=== PATIENT | female | born 1955 ===

== ENCOUNTER 2017-02-19 08:10 | Emergency (ER) | payer OTHER ==
[2017-02-19 08:25] VITALS: BMI 32.8
[2017-02-19 08:29] VITALS: BP 183/89; PULSE 81; RESP 18; TEMP 98.2; O2SAT 98
--- NOTE | 2017-02-19 08:48 | C.PDOC ---
History Of Present Illness 61 y/o female, whose PMHx includes Asthma, Diabetes, and HTN, presents to the ED for evaluation s/p trip and fall prior to arrival. Patient states she missed a step on the sidewalk. She reports trauma to the right shoulder and bilateral knees, face and left hand. Patient notes that she is able to ambulate without difficulty. States pain is worst to the right shoulder with limited range of movement. Patient denies loss of consciousness, nausea, vomiting, or other complaints. [employer]. PS MISSED STEP ON SIDEWALK, +TRAUMA R SHOULDER B/L KNEES, FACE AND L HAND. NO LOC, NV. +AMBUL WO DIFF. WORST PAIN @ R SHOULDER. LIMITED MOVEMENT. EXAM MILD DIST NONTOXIC HEENT +CONTUSION L LAT ELBOW W LOCAL TEND, NO SWELL; EOMI; NO EPISTAXIS ABD NEG EXT R SHOULDER: LIMITED ROM DUE TO PAIN; NO GROSS DEFORM; GEN TENDERNESS. B/L KNEES: AROM W/O DIFF, NONTEND, NO SWELL. L HAND: CHRONIC SUBCUT CYST OVER 3/4 METACARPAL, NONTEND, FLUCTUANT; NO DEFORM, NONTEND AROM WO DIFF SKIN +ABRASION B/L KNEES; ABRASION L HAND. NO ACTIVE BLEED NEURO INTACT - HPI Time Seen by Provider: 02/19/17 08:37 Chief Complaint (Nursing): Lower Extremity Problem/Injury History Per: Patient History/Exam Limitations: no limitations Onset/Duration Of Symptoms: Mins, Sudden Onset, Persistent Injury Occurred (Timing): Just Before Arrival Recent travel outside of the [place]: No Past Medical History Reviewed: Historical Data, Nursing Documentation, Vital Signs Vital Signs: Last Vital Signs Temp 98.2 F 02/19/17 08:29 Pulse 81 02/19/17 08:29 Resp 18 02/19/17 08:29 BP 183/89 H 02/19/17 08:29 Pulse Ox 98 02/19/17 09:31 - Medical History PMH: Asthma, Diabetes, HTN Surgical History: Cholecystectomy (1994) - [facility] Procedures BREAST DX PROCEDURE NEC (12/21/13) PERCUTAN NEEDLE BIOPSY OF BREAST (12/21/13) X-RAY NEC AND NOS (12/21/13) Family History: States: Unknown Family Hx - Social History Hx Tobacco Use: No Hx Alcohol Use: No Hx Substance Use: No Review Of Systems Except As Marked, All Systems Reviewed And Found Negative. Gastrointestinal: Negative for: Nausea, Vomiting Musculoskeletal: Positive for: Other (pain/trauma to right shoulder, b/l knees, face, and left hand) Neurological: Negative for: Other (LOC) Physical Exam - Physical Exam Appears: Non-toxic, Other (in mild distress) Skin: Warm, Dry, Other (+ABRASION B/L KNEES; ABRASION L HAND. NO ACTIVE BLEED) Head: Atraumatic, Normacephalic Eye(s): bilateral: Normal Inspection, PERRL, EOMI Nose: Normal, No Epistaxis Neck: Normal ROM, No Midline Cervical Tenderness, Supple Chest: Symmetrical, No Tenderness Cardiovascular: Rhythm Regular Respiratory: Normal Breath Sounds, No Rales, No Rhonchi, No Wheezing Gastrointestinal/Abdominal: Normal Exam, Soft, No Tenderness Back: Normal Inspection, No Vertebral Tenderness Extremity: Other (EXT R SHOULDER: LIMITED ROM DUE TO PAIN; NO GROSS DEFORM; GEN TENDERNESS. B/L KNEES: AROM W/O DIFF, NONTEND, NO SWELL. L HAND: CHRONIC SUBCUT CYST OVER 3/4 METACARPAL, NONTEND, FLUCTUANT; NO DEFORM, NONTEND AROM WO DIFF. + CONTUSION L LAT ELBOW W LOCAL TEND, NO SWELL) Neurological/Psych: Oriented x3, Normal Speech, Normal Cognition, Normal Cranial Nerves (II-XII intact), Normal Sensation Gait: Steady ED Course And Treatment O2 Sat by Pulse Oximetry: 98 (ra) Pulse Ox Interpretation: Normal - Other Rad X-Ray, Right Shoulder X-Ray: Interpreted by Me Interpretation: + fracture to right humeral head; no dislocation X-Ray, Right Humerus X-Ray: Interpreted by Me Interpretation: normal, no fractures or dislocations X-Ray, Left Hand X-Ray: Interpreted by Me Interpretation: normal, no fractures or dislocations Progress - Data Reviewed Data Reviewed: Lab, Old records Medical Decision Making Medical Decision Making: Plan: * X-Ray, Left Hand * X-Ray, Right Shoulder * X-Ray, Right Humerus * Naproxen PO, Percocet PO * Tetanus Booster Disposition Counseled Patient/Family Regarding: Studies Performed, Diagnosis, Need For Followup, Rx Given - Disposition Referrals: Caryl Monk MD [Staff Provider] - [facility] [Outside] [facility] [Other] Disposition: HOME/ ROUTINE Disposition Time: 09:28 Condition: IMPROVED Prescriptions: oxyCODONE/Acetaminophen [Percocet 5/325 mg Tab] 1 tab PO QID PRN #14 tab PRN Reason: Pain Instructions: Arm Fracture in Adults (ED) Forms: Work Excuse - Clinical Impression Clinical Impression: Shoulder fracture - Scribe Statement The provider has reviewed the documentation as recorded by the Scribe (Vicky Ferrell) Provider Attestation: All medical record entries made by the Scribe were at my direction and personally dictated by me. I have reviewed the chart and agree that the record accurately reflects my personal performance of the history, physical exam, medical decision making, and the department course for this patient. I have also personally directed, reviewed, and agree with the discharge instructions and disposition. Orthopedic Care Application Of:: Shoulder Immobilizer (RIGHT)
[2017-02-19] MEDS ORDERED: Naproxen 550 mg Tab PO STA (08:49)
[2017-02-19] MEDS ORDERED: Tetanus/Diphtheria Toxoids 0.5 ml Syringe IM ONE ×2 (08:50→09:00)
[2017-02-19] MEDS ORDERED: Naproxen 550 mg Tab PO ONE (09:00)
[2017-02-19] MEDS ORDERED: Oxycodone/Acetaminophen 5/325 mg Tab PO STA (09:31)
[2017-02-19] MEDS ORDERED: Oxycodone/Acetaminophen 5/325 mg Tab ONE (09:42)
--- NOTE | 2017-02-19 10:15 | RAD ---
PROCEDURE: Left Hand Radiographs. HISTORY: TRAUMA COMPARISON: None. FINDINGS: BONES: Normal. No fracture. JOINTS: Normal. No osteoarthritic changes. SOFT TISSUES: Normal. OTHER FINDINGS: None. IMPRESSION: Normal left hand radiographs.
--- NOTE | 2017-02-19 10:18 | RAD ---
PROCEDURE: Right humerus HISTORY: TRAUMA COMPARISON: TECHNIQUE: Two views FINDINGS: There is a comminuted fracture of the humeral head. The remainder the humerus is intact IMPRESSION: Comminuted fracture humeral head
--- NOTE | 2017-02-19 10:19 | RAD ---
PROCEDURE: Radiographs of the Right Shoulder HISTORY: TRAUMA COMPARISON: No prior. FINDINGS: BONES: There is a comminuted fracture of the humeral head. Bony fragments are seen lateral to the humeral head. The articular surface is intact JOINTS: Normal. Glenohumeral and acromioclavicular joints preserved. No osteoarthritis. SOFT TISSUES: Normal. OTHER FINDINGS: None. IMPRESSION: There is a comminuted fracture of the humeral head. Bony fragments are seen lateral to the humeral head. The articular surface is intact
== END 2017-02-19 09:46 | disposition home or self-care (01) ==
LOC: C.ER 08:10
DX: S42.291A Other displaced fracture of upper end of right humerus, initial encounter for closed fracture (principal); S80.212A Abrasion, left knee, initial encounter; S80.211A Abrasion, right knee, initial encounter; S60.512A Abrasion of left hand, initial encounter; W01.0XXA Fall on same level from slipping, tripping and stumbling without subsequent striking against object, initial encounter; Y92.480 Sidewalk as the place of occurrence of the external cause

== ENCOUNTER 2017-02-27 11:22 | Inpatient (IN) | payer OTHER ==
[2017-02-26 08:03] VITALS: BMI 34.3
[2017-02-27] MEDS ORDERED: Bacitracin 50,000 UNIT in Sodium Chloride 0.9% Irrig 1,000 ML IR SCH (13:00)
[2017-02-27] MEDS ORDERED: ceFAZolin IV 1 gm in Dextrose 100 ML IVPB ONE (13:51)
[2017-02-27] MEDS ORDERED: Midazolam 2 MG/2 ML VIAL ONE (13:51)
[2017-02-27] MEDS ORDERED: Propofol 10 mg/ml Inj (20 ML) ONE (13:51)
[2017-02-27] MEDS ORDERED: Bupivacaine HCl 0.5% PF (10 ml) Inj ONE (13:52)
[2017-02-27] MEDS ORDERED: Lidocaine 1% Inj (20ml) ONE (13:52)
[2017-02-27] MEDS ORDERED: Morphine 4 MG/ML VIAL ONE (15:13)
[2017-02-27] MEDS ORDERED: ceFAZolin IV 1 gm in Dextrose 50 ML IVPB ONE ×2 (18:01→22:06)
[2017-02-27] MEDS ORDERED: Lactated Ringer's 1,000 ML IV ONE (20:10)
[2017-02-27] MEDS ORDERED: HYDROmorphone 0.5 mg/0.5 ml ISec IVP PRN (23:16)
[2017-02-28] MEDS: Sodium Chloride 0.45% 1,000 ML IV SCH ×3 (01:43→21:29)
[2017-02-28] MEDS: ceFAZolin IV 2 gm in Dextrose 50 ML IVPB SCH ×2 (01:44→11:00)
[2017-02-28 05:59] LABS: BASO # 0.1 K/uL (0.0-0.2); BASO % 0.5 % (0.0-2.0); EOS % 0.2 % (0.0-4.0); HEMATOCRIT 31.2 % (34.0-47.0); LYMPH # 1.9 K/uL (1.0-4.3); LYMPH % 12.7 % (20.0-40.0); MEAN CELL VOLUME 78.4 fL (81.0-99.0); MEAN CORPUSCULAR HEMOGLOBIN 24.5 pg (27.0-31.0); MEAN CORPUSCULAR HGB CONC 31.2 g/dL (33.0-37.0); MEAN PLATELET VOLUME 8.4 fL (7.2-11.7); MONO # 0.9 K/uL (0.0-0.8); RED CELL DISTRIBUTION WIDTH 13.7 % (11.5-14.5); WHITE BLOOD COUNT 15.2 K/uL (4.8-10.8)
[2017-02-28 06:16] LABS: CHLORIDE 92 mmol/L (98-107); POTASSIUM 3.6 mmol/L (3.6-5.2); SODIUM 138 mmol/L (132-148)
[2017-02-28 06:19] LABS: CARBON DIOXIDE 30 mmol/L (22-30); GFR AFRICAN-AMERICAN > 60
[2017-02-28 06:20] LABS: BLOOD UREA NITROGEN 13 mg/dL (7-17); CALCIUM 8.1 mg/dl (8.6-10.4); GLUCOSE,RANDOM 319 mg/dL (65-105)
--- NOTE | 2017-02-28 08:28 | OP ---
PROCEDURE DATE: 02/27/2017 PREOPERATIVE DIAGNOSIS: Right proximal humerus fracture. POSTOPERATIVE DIAGNOSIS: Right proximal humerus fracture and axillary nerve injury. PROCEDURE: Open reduction, internal fixation of right proximal humerus fracture and repair of axilla ry nerve injury, this portion of the repair the nerve will be dictated by Dr. Duffy. COMPLICATIONS: None. ESTIMATED BLOOD LOSS: 250 mL. IMPLANT: An Arthrex proximal humeral locking plate. INDICATIONS FOR PROCEDURE: This is a 61-year-old female who approximately 8 days ago sustained a fal l injuring her right shoulder. Clinical and radiographic examination was consistent with a comminute d proximal humerus fracture. Recommendations were for open reduction and internal fixation of the fr acture once the patient was medically optimized. The risks, benefits, and alternatives of procedure were discussed with the patient and informed consent was obtained. OPERATIVE PROCEDURE: After surgical site was signed and verified in preoperative holding area, the p atient was taken to the operating room and placed supine on the operating table. After administratio n of general anesthesia, patient received 2 grams of Ancef IV. The patient was positioned in a beach chair position. Care was taken to make sure all bony prominences and nerves were well padded and pr otected. Venodyne boots were placed on bilateral lower extremities and the right upper extremity was prepped and draped in the usual sterile fashion. The bony landmarks were identified about the right shoulder and a lateral approach was taken to the fracture site. First, the lateral edge of the acro mion was identified and approximately 8 cm longitudinal incision was made laterally extending down ov er the deltoid. Soft tissues of the anterior and posterior flaps were raised exposing the deltoid fa scia. At this point, using a ruler, the approximate location of the axillary nerve was identified an d was marked at 5 cm distal to the lateral edge of the acromion. At this point, starting proximally soft tissues, the fascia was incised and the deltoid fibers were split down to the capsule. The marshall ent was noted to have extensive comminution at the greater tuberosity. At this point, dissection was extended distally down to the 5 cm diego. At this point, care was taken to try to palpate the axilla ry nerve. However, the axillary nerve was not visualized and was not palpable. Several bony fragmen ts were identified and at this point, there was concern that there was damage to the anterior branche s of the axillary nerve and Dr. Duffy who is a microvascular surgeon was called for intraoperative co nsultation. When Dr. Duffy scrubbed into the procedure, she agreed that the nerve to the anterior po rtion of the deltoid appeared to have been damaged. The edges of the nerve appeared to be almost cru shed essentially at the level of the fracture site and the comminution. At this point, she tagged th e nerve and I proceeded with the open reduction, internal fixation of the fracture. Three sutures we re placed in the greater tuberosity fragment and using the C-arm image intensifier an open reduction was performed provisionally holding our reduction using K wires. Next, a 3-hole Arthrex plate was pl aced on the lateral aspect of the proximal humerus. Position of the plate was checked using the imag e intensifier on both the AP and lateral planes. The plate was then first fixed with a cortical scre w in the distal shaft fragment and locking screws were then placed in the proximal greater tuberosity and humeral head fragment. Position of the screws was checked using the image intensifier on both t he AP and lateral planes. Satisfied, the fracture was then further fixed distally with 2 additional locking screws. At this point, all the K-wires were removed and our reduction was checked. Using th e previously passed sutures in the greater tuberosity fragment, #2 FiberWire sutures were passed thro ugh holes in the proximal aspect of the plate and tied down firmly securing the greater tuberosity fr agments back down to the plate. The arm was taken through range of motion and was noted to be stable with good reduction. At this point, Dr. Duffy proceeded with the nerve repair and once the nerve wa s repaired, the wound was copiously irrigated and closed in a layered fashion using 0 Vicryl, 2-0 Ilia ryl suture and 3-0 nylon for the skin. Sterile dressing was applied and an abduction pillow sling wa s placed. The patient was awakened from the procedure and taken to recovery room in stable condition . Amauri Murry MD cc: [id number] TT: 02/28/2017 08:27:26 aquilino
[2017-02-28] MEDS ORDERED: (Novolin R) Insulin Human Regular 100 units/ml vial SC ONE (09:23)
[2017-02-28] MEDS: hydroCHLOROthiazide-Triamterene 25 mg-37.5 mg Cap UD PO SCH (09:53)
--- NOTE | 2017-02-28 12:22 | CP.PCM.PN ---
Subjective - Date & Time of Evaluation Date of Evaluation: 02/28/17 Time of Evaluation: 12:20 - Subjective Subjective: Pt awake, alert. C/o R shoulder pain and bump on back of head. Pt had a CT scan of head this morning. Afebrile RUE: grossly NVI distally good cap refill in all fingers palpable distal pulses dressing clean and intact sling in place Hg 9.7 WBC 15.2 POD#[address] scan pain control possible d/c tomorrow Objective - Vital Signs/Intake and Output Vital Signs (last 24 hours): Temp Pulse Resp BP Pulse Ox 98.5 F 86 18 138/69 97 02/28/17 12:00 02/28/17 12:00 02/28/17 12:00 02/28/17 12:00 02/28/17 12:00 Intake and Output: 02/28/17 02/28/17 06:59 18:59 Intake Total 1800 Output Total 400 Balance 1400 - Medications Medications: Current Medications Amlodipine Besylate (Norvasc) 5 mg PO DAILY [facility] Last Admin: 02/28/17 09:53 Dose: 5 mg Bisoprolol Fumarate (Zebeta) 10 mg PO DAILY [facility] Last Admin: 02/28/17 09:53 Dose: 10 mg Enalapril Maleate (Vasotec) 10 mg PO DAILY [facility] Last Admin: 02/28/17 10:03 Dose: Not Given Glimepiride (Amaryl) 4 mg PO BID [facility] Last Admin: 02/28/17 09:53 Dose: 4 mg Hydromorphone HCl (Dilaudid) 1 mg IVP Q4H PRN PRN Reason: post op Last Admin: 02/28/17 08:22 Dose: 1 mg Sodium Chloride (Sodium Chloride 0.45%) 1,000 mls @ 100 mls/hr IV .Q10H [facility] Last Admin: 02/28/17 01:43 Dose: 100 mls/hr Insulin Human Regular (Novolin R) 0 unit SC ACHS [facility] PRN Reason: Protocol Triamterene/HCTZ (Dyazide 25 Mg-37.5 Mg) 1 cap PO DAILY [facility] Last Admin: 02/28/17 09:53 Dose: 1 cap - Labs Labs: 02/28/17 05:53 02/28/17 05:53
[2017-02-28] MEDS: (Novolin R) Insulin Human Regular 100 units/ml vial SC SCH ×3 (12:34→21:27)
--- NOTE | 2017-02-28 12:55 | CT ---
PROCEDURE: CT HEAD WITHOUT CONTRAST. HISTORY: s/p fall.c/o pain / bump on occipital area COMPARISON: 01/06/2017 TECHNIQUE: Axial computed tomography images were obtained through the head/brain without intravenous contrast. Radiation dose: Total exam DLP = 945 mGy-cm. This CT exam was performed using one or more of the following dose reduction techniques: Automated exposure control, adjustment of the mA and/or kV according to patient size, and/or use of iterative reconstruction technique. FINDINGS: HEMORRHAGE: No intracranial hemorrhage. BRAIN: No mass effect or edema. Scattered focal lucencies in the subcortical and periventricular white matter suggestive for chronic microvascular ischemic change. Small hypodensity in the left basal ganglia which may represent a small lacunar infarct versus prominent perivascular space. VENTRICLES: Unremarkable. No hydrocephalus. CALVARIUM: Unremarkable. PARANASAL SINUSES: Unremarkable as visualized. No significant inflammatory changes. MASTOID AIR CELLS: Unremarkable as visualized. No inflammatory changes. OTHER FINDINGS: Soft tissue swelling seen overlying the right parieto-occipital cranium. Partially calcified soft tissue nodule seen overlying the right frontal cranium. IMPRESSION: Soft tissue swelling overlying the right parieto-occipital cranium. Small hypodensity in the left basal ganglia which may represent a small lacunar infarct versus prominent perivascular space. Mild chronic microvascular ischemic changes. If focal neurologic deficit persists, consider MRI.
--- NOTE | 2017-02-28 13:50 | CP.PCM.PCO ---
Physician Communication Note - Physician Communication Note Physician Communication Note: Patient status post ORIF right humeral fracture Assessment & Plan - Assessment and Plan (Free Text) Assessment: She is doing well, head CT performed. CT scan shows is unremarkable. RUE: Flexion and extension of elbow and fingers intact. There is good cap refill in all fingers with palpable radial pulse. Dressing is clean, dry and intact. Accessment and Plan: Humeral fracture fixation and superior axillary nerve branch repair Patient has no restrictions from the nerve repair standpoint and will follow humeral fracture protocol as per Dr. Branham's direction. She will follow up with me in the office in a few weeks. Anticipate the nerve recovery to take a few months before any significant reinnervation will be noted.
[2017-02-28 16:05] VITALS: RESP 20
[2017-03-01] MEDS: Sodium Chloride 0.45% 1,000 ML IV SCH ×2 (00:05→10:15)
[2017-03-01] MEDS: (Novolin R) Insulin Human Regular 100 units/ml vial SC SCH ×3 (07:51→17:18)
[2017-03-01 08:18] LABS: HEMATOCRIT 27.1 % (34.0-47.0); MEAN CORPUSCULAR HEMOGLOBIN 24.7 pg (27.0-31.0); MEAN CORPUSCULAR HGB CONC 31.7 g/dL (33.0-37.0); MEAN PLATELET VOLUME 8.3 fL (7.2-11.7); RED CELL DISTRIBUTION WIDTH 13.8 % (11.5-14.5); WHITE BLOOD COUNT 12.8 K/uL (4.8-10.8)
[2017-03-01 08:32] LABS: CHLORIDE 91 mmol/L (98-107); POTASSIUM 3.5 mmol/L (3.6-5.2); SODIUM 132 mmol/L (132-148)
[2017-03-01 08:34] LABS: GFR AFRICAN-AMERICAN > 60
[2017-03-01 08:35] LABS: BLOOD UREA NITROGEN 8 mg/dL (7-17); CARBON DIOXIDE 28 mmol/L (22-30)
[2017-03-01 08:36] LABS: CALCIUM 7.9 mg/dl (8.6-10.4); GLUCOSE,RANDOM 336 mg/dL (65-105)
[2017-03-01] MEDS: hydroCHLOROthiazide-Triamterene 25 mg-37.5 mg Cap UD PO SCH (09:56)
--- NOTE | 2017-03-01 10:33 | CP.PCM.PN ---
Subjective - Date & Time of Evaluation Date of Evaluation: 03/01/17 Time of Evaluation: 10:32 - Subjective Subjective: Pt awake, alert. Sitting up in chair. Less pain today. Afebrile RUE: dressing clean NVI distally palpable distal pulse Hg 8.6 POD#2 Stable for d/c home today if of with internal med service pt to f/u in office Objective - Vital Signs/Intake and Output Vital Signs (last 24 hours): Temp Pulse Resp BP Pulse Ox 97.7 F 86 20 121/72 96 03/01/17 09:53 03/01/17 09:53 03/01/17 09:53 03/01/17 09:53 03/01/17 09:53 Intake and Output: 03/01/17 03/01/17 06:59 18:59 Intake Total 900 Balance 900 - Medications Medications: Current Medications Amlodipine Besylate (Norvasc) 5 mg PO DAILY [facility] Last Admin: 03/01/17 09:55 Dose: 5 mg Bisoprolol Fumarate (Zebeta) 10 mg PO DAILY [facility] Last Admin: 03/01/17 09:55 Dose: 10 mg Docusate Sodium (Colace) 100 mg PO TID [facility] Last Admin: 03/01/17 09:55 Dose: 100 mg Enalapril Maleate (Vasotec) 10 mg PO DAILY [facility] Last Admin: 02/28/17 10:03 Dose: Not Given Glimepiride (Amaryl) 4 mg PO BID [facility] Last Admin: 03/01/17 09:55 Dose: 4 mg Hydromorphone HCl (Dilaudid) 1 mg IVP Q4H PRN PRN Reason: post op Last Admin: 03/01/17 04:59 Dose: 1 mg Sodium Chloride (Sodium Chloride 0.45%) 1,000 mls @ 100 mls/hr IV .Q10H [facility] Last Admin: 03/01/17 00:05 Dose: 100 mls/hr Insulin Human Regular (Novolin R) 0 unit SC ACHS [facility] PRN Reason: Protocol Last Admin: 03/01/17 07:51 Dose: 3 unit Triamterene/HCTZ (Dyazide 25 Mg-37.5 Mg) 1 cap PO DAILY [facility] Last Admin: 03/01/17 09:56 Dose: 1 cap - Labs Labs: 03/01/17 08:10 03/01/17 08:10
[2017-03-01 16:25] VITALS: BP 124/73; PULSE 80; TEMP 98.9; O2SAT 98
--- NOTE | 2017-03-02 10:02 | CON ---
DATE: 02/28/2017 HISTORY OF PRESENT ILLNESS: This is a 61-year-old female who is known to me with multiple medical problems, underwent right shoulder surgery . She is postoperative day #1 and medical consultation is called for medical followup while the patient is in the hospital. The patient has multiple medical problems and she is on multiple medications. The patient is alert, awake, oriented x 3 at the time of this examination with no respiratory distress and denied any chest pain or shortness of breath. REVIEW OF SYSTEMS: Other review of systems is negative. ALLERGIES: THE PATIENT HAS ALLERGY TO SESAME OIL AND SHELLFISH. SOCIAL HISTORY: No history of smoking, ETOH or substance abuse. FAMILY HISTORY: Noncontributory. HOME MEDICATIONS: The patient is on bisoprolol 5 mg daily, Lotrel 5/20 once a day, glimepiride 4 mg twice a day, Xarelto 20 daily, Janumet twice a day , Dyazide 37.5/25 once a day. PAST MEDICAL HISTORY: Paroxysmal atrial fibrillation, hypertension, type 2 diabetes mellitus. PHYSICAL EXAMINATION: GENERAL: The patient is in bed, comfortable at the time of this examination, in no cardiopulmonary distress. VITAL SIGNS: Blood pressure is 148/77, temperature 99, respiratory rate 20, and pulse is 84. HEENT: Pupils equal, reactive to light. Normal-appearing mucosa of the conjunctivae, oropharyngeal and nasal membrane mucosa. The patient also has occipitoparietal soft tissue swelling as the patient was waiting in the operating room for an extended period of surgery yesterday NECK: Supple, no JVD, no carotid bruit, no lymph node, no thyromegaly. CHEST AND LUNGS: Bilateral symmetrical expansion, good air exchange, no rales, no rhonchi. CARDIOVASCULAR: PMI not localized. S1, S2. No additional sounds. ABDOMEN: Normoactive bowel sounds, no tenderness, no organomegaly, no masses. EXTREMITIES: No cyanosis, no clubbing, no edema. CENTRAL NERVOUS SYSTEM: Alert, awake, oriented x 3. No neurological deficits could be appreciated. ASSESSMENT: 1. Postoperative day #1, status post open reduction internal fixation of right shoulder fracture. 2. Type 2 diabetes mellitus. 3. Hypertension. 4. Paroxysmal atrial fibrillation. PLAN: We will resume the patient's home medications, Accu-Cheks with insulin coverage and we will do a CAT scan; a CAT of the head was done and we will follow the recommendations of neurosurgery. Gillian Perry MD cc: [id number] TT: 02/28/2017 19:31:10 Confirmation # [id number] Dictation # [id number] [email or web address]
--- NOTE | 2017-03-02 10:27 | CON ---
DATE: 03/01/2017 This is a 61-year-old lady that apparently fell, suffered a severe injury involving her right shoulde r. Apparently, she underwent rather extensive shoulder surgery a couple of days ago. One report was that it lasted about 8 hours. , the big issue is in the decubitus position the pain is for mary e time, mostly involving on her right head. Postoperatively, it was noted that she had swelling involving the right side of her parietal region. A CT scan was done of the brain which simply documented a soft tissue swelling in the scalp. On interviewing the patient today, she reports no symptoms at all other than the localized discomfort in the area. Denies any true headache, nausea, vomiting, motor or sensory symptoms, epileptiform ac tivity, etc. Her past medical history, medications, allergies and social history reviewed in the EMR. PHYSICAL EXAMINATION: She is again on mental status, motor and sensory intact. She has a little bit of swelling, which is in fact painful in the right parietooccipital region. There is no evidence of erythema or drainage. The CT shows again simply an area of soft tissue scalp swelling in the right parietooccipital area. There is no breach of the skull and there is no intracranial pathology at all. IMPRESSION AND PLAN: I would agree that this most likely represents some postoperative fluid from pe rhaps being in one position for a long time. In all likelihood it will resolve over the next several weeks. I reported this information to the patient. If there are any other issues or problems, feel free to call me back. Daniel Caruso MD cc: [id number] TT: 03/01/2017 19:02:23 Confirmation # [id number] Dictation # [id number] mn
--- NOTE | 2017-03-02 16:13 | OP ---
PROCEDURE DATE: 02/27/2017 SURGEON: Dr. Sabina Duffy. 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 ANESTHESIA: General endotracheal anesthesia. PROCEDURE: Repair of superior branch axillary nerve within the deltoid muscle using a 20 mm long 2-3 mm wide Axogen cadaveric nerve graft to bridge the gap from a tatyana inferior axillary nerve nerve branch motor transfer end to side to end to end transfer to the distal superior axillary nerve. INDICATIONS FOR SURGERY: The patient is a 61-year-old female with a proximal humerus fracture. While Dr. Murry was in the process of exposing the fracture for plating, he noted no variation in the axillary nerve anatomy and was unable to identify axillary nerve crossing the humerus at the level expected. He requested intraoperative consultation and during exploration, it was noted that her axillary nerve inferior branch was intact and stimulated the posterior and middle third of the deltoid, while the superior branch had been transected most likely from a shard of fracture as the distal end was able to be stimulated and the transection was sharp not blunt. Division of the deltoid was done bluntly. DESCRIPTION OF SURGICAL PROCEDURE: I was called in intraoperatively. The patient was already prepped and draped on the table in a semisupine position. The deltoid muscle had been bluntly split and the axillary nerve was eventually identified distal to the fracture entering into the inferior posterior aspect of the deltoid from the posterior aspect of the humerus. The superior branch proximally was unable to be identified despite tracing the inferior brach proximally as it exited posterior to the humerus. The distal branch was found in the superior third of the anterior muscle quickly dividing within the muscle itself and running together with the circumflex artery. The proximal end was not identified. The axillary nerve passing posterior to the humerus was not violated and a branch to the posterior deltoid was identified. The middle nerve branch being sensory was identified and then a second muscular branch leading to the inferior middle aspect of the deltoid was identified. Proximally there was no motor branch identified and concern was that it may have retracted behind the humerus. Rather than potentially injuring the inferior branch which seemed fairly isaacs, decision was made to do a tatyana deltoid motor branch nerve transfer with a 2 cm AxoGen nerve graft into the anterior deltoid. Dr. Dunn proceeded to plate the humeral neck fracture at this time while there was no impediment. Once completed, I rescrubbed into the surgery in order to reconstruct the nerve defect. Using 9-0 nylon, the distal neurorrhaphy was repaired first. This allowed the retractors to be released and the AxoGen nerve graft, which was 2-3 mm x 30 mm long was truncated to 20 mm in length. The more posterior of the inferior branch stimulated quite strongly. A partial neurotomy was performed to 1/3 the overall width. The remianing intact fibers still provided contraction of the posterior deltoid. The proximal end of the nerve graft was then sewn end-to-side into the motor branch neurotomy site with 9-0 nylon sutures. The deltoid fascia was then repaired along its external muscular fascia by Dr. Murry and he proceeded to finished the surgery, closed skin and placed her arm in an immobilization. Sabina Duffy MD cc: [id number] TT: 03/02/2017 16:11:55 an MTDLaura
--- NOTE | 2017-03-02 17:05 | RAD ---
PROCEDURE: Intraoperative fluoroscopy HISTORY: RIGHT SHOULDER FX COMPARISON: Not available TECHNIQUE: Fluoroscopy was provided for ORIF of right shoulder. Total time of fluoroscopy was 142.0 seconds. FINDINGS: Seven fluoroscopic spot films are submitted. Films are on file for review. IMPRESSION: Fluoroscopy provided.
== END 2017-03-01 18:00 | disposition home or self-care (01) | DRG 494 ==
LOC: C.SDS 11:22 → C.9S 21:23 → C.6T 22:59
PROVIDERS: ADMIT Orthopaedic Surgery; ATTEND Orthopaedic Surgery
PROC: 01Q Peripheral Nervous System, Repair (ICD-10-PCS; 2017-02-27)
PROC: 01U Peripheral Nervous System, Supplement (ICD-10-PCS; 2017-02-27)
PROC: 0PSF04Z Reposition Right Humeral Shaft with Internal Fixation Device, Open Approach (ICD-10-PCS; principal; 2017-02-27 13:00)
DX: S42.291A Other displaced fracture of upper end of right humerus, initial encounter for closed fracture (principal); I10 Essential (primary) hypertension; S44.31XA Injury of axillary nerve, right arm, initial encounter; R22.0 Localized swelling, mass and lump, head; E11.9 Type 2 diabetes mellitus without complications; I48.0 Paroxysmal atrial fibrillation; W19.XXXA Unspecified fall, initial encounter; Y92.9 Unspecified place or not applicable; Z79.84 Long term (current) use of oral hypoglycemic drugs

== ENCOUNTER 2018-01-16 15:14 | Emergency (ER) | payer OTHER ==
[2018-01-16 15:14] VITALS: BMI 34.3
[2018-01-16 16:56] LABS: SQUAMOUS EPITHIAL < 1 /hpf (0-5); URINE BILIRUBIN NEGATIVE (NEGATIVE); URINE BLOOD NEGATIVE (NEGATIVE); URINE CLARITY Clear (Clear); URINE COLOR Straw (YELLOW); URINE GLUCOSE (UA) NORMAL (Normal); URINE LEUKOCYTE ESTERASE NEG Leu/uL (Negative); URINE NITRATE NEGATIVE (NEGATIVE); URINE PROTEIN NEGATIVE (NEGATIVE); URINE UROBILINOGEN NORMAL mg/dL (0.2-1.0)
--- NOTE | 2018-01-16 17:03 | RAD ---
Chest x-ray two views History: Cough. Comparison: None available. Findings: Diffuse increased interstitial lung markings. Mild patchy increased markings at the left lung base. Small nodular density at the lateral aspect of the left lung base. Upper lobe granulomatous changes. Tortuous aorta. Heart size within normal limits. Degenerative changes in the spine with paravertebral osteophytes. Postsurgical changes in the right proximal humerus. Impression: Diffuse increased interstitial lung markings. Mild patchy increased markings at the left lung base. Small nodular density at the lateral aspect of the left lung base. Upper lobe granulomatous changes. Tortuous aorta.
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
[2018-01-16 18:03] VITALS: BP 132/81; PULSE 85; RESP 18; TEMP 98.1
[2018-01-16 22:08] VITALS: O2SAT 99
== END 2018-01-16 18:03 | disposition home or self-care (01) ==
LOC: C.ER 15:14
DX: J40 Bronchitis, not specified as acute or chronic (principal); M54.5 Low back pain

== ENCOUNTER 2018-07-22 09:39 | Day surgery (SDC) | payer OTHER ==
[2018-07-21 13:17] VITALS: BMI 32.4
[2018-07-22] MEDS ORDERED: Propofol 10 mg/ml Inj (20 ML) ONE (10:27)
[2018-07-22] MEDS ORDERED: Lactated Ringer's 500 ML IV ONE ×2 (10:30)
[2018-07-22 10:40] VITALS: O2SAT 100
--- NOTE | 2018-07-22 11:04 | CP.SDSHP ---
Same Day Surgery H & P - History Proposed Procedure: colonoscopy Pre-Op Diagnosis: screening - Previous Medical/Surgical History Cardiac: Hypertension, Arrhythmia Endocrine/Metabolic: Diabetes - Allergies Allergies: Allergies sesame oil Allergy (Verified 07/21/18 13:16) SHORTNESS OF BREATH shellfish derived Allergy (Verified 07/21/18 13:16) SHORTNESS OF BREATH shrimp Allergy (Verified 07/21/18 13:16) SHORTNESS OF BREATH squid Allergy (Verified 07/21/18 13:16) SHORTNESS OF BREATH - Physical Exam Vital Signs: Vital Signs 07/22/18 07/22/18 10:16 10:38 Temperature 98.4 F Pulse Rate 73 80 Respiratory 18 16 Rate Blood Pressure 129/54 L 118/70 O2 Sat by Pulse 96 100 Oximetry Mental Status: Alert & Oriented x3 Neuro: WNL Heart: WNL Lungs: WNL GI: WNL - {Optional Preform as Required} Abdomen: WNL - Impression Impression: screening Pt. Evaluated Today:Candidate for Anesthesia & Procedure: Yes - Date & Time Date: 07/22/18 Time: 10:25 Short Stay Discharge - Short Stay Discharge Admitting Diagnosis/Reason for Visit: ENCOUNTER FOR SCREENING FOR MALIGNANT NEOPLASM OF Disposition: HOME/ ROUTINE
[2018-07-22 11:33] VITALS: TEMP 97.1
[2018-07-22 11:54] VITALS: PULSE 75
[2018-07-22 11:57] VITALS: BP 136/68; RESP 17
== END 2018-07-22 12:35 | disposition home or self-care (01) ==
LOC: C.ENDO 09:39
PROVIDERS: ATTEND Internal Medicine Gastroenterology
DX: Z12.11 Encounter for screening for malignant neoplasm of colon (principal); D12.5 Benign neoplasm of sigmoid colon; E11.9 Type 2 diabetes mellitus without complications; I10 Essential (primary) hypertension
CPT/HCPCS: 45380; 82948; 88305; J2001; J2704; J7120

== ENCOUNTER 2018-12-19 13:55 | Emergency (ER) | payer OTHER ==
[2018-12-19 13:55] VITALS: BMI 32.4
[2018-12-19 15:27] LABS: BASO # 0.1 K/uL (0.0-0.2); BASO % 1.1 % (0.0-2.0); EOS % 0.3 % (0.0-4.0); HEMOGLOBIN 12.6 g/dL (11.0-16.0); LYMPH # 0.4 K/uL (1.0-4.3); LYMPH % 3.6 % (20.0-40.0); MEAN CELL VOLUME 77.4 fL (81.0-99.0); MEAN CORPUSCULAR HEMOGLOBIN 24.8 pg (27.0-31.0); MEAN CORPUSCULAR HGB CONC 32.1 g/dL (33.0-37.0); MEAN PLATELET VOLUME 8.8 fL (7.2-11.7); MONO # 0.8 K/uL (0.0-0.8); NEUT # 8.8 K/uL (1.8-7.0); NRBC % 0.1 % (0.0-2.0); PLATELET COUNT 212 K/uL (130-400); RBC 5.09 Mil/uL (3.80-5.20); RED CELL DISTRIBUTION WIDTH 14.4 % (11.5-14.5); WHITE BLOOD COUNT 10.1 K/uL (4.8-10.8)
[2018-12-19 15:35] LABS: INR 1.3; PROTHROMBIN TIME 14.1 SECONDS (9.7-12.2)
[2018-12-19 15:40] LABS: SQUAMOUS EPITHIAL 1 /hpf (0-5); URINE BILIRUBIN NEGATIVE (NEGATIVE); URINE BLOOD NEGATIVE (NEGATIVE); URINE CLARITY Clear (Clear); URINE COLOR Yellow (YELLOW); URINE GLUCOSE (UA) 3+ mg/dL (Normal); URINE LEUKOCYTE ESTERASE NEG Leu/uL (Negative); URINE PROTEIN NEGATIVE (NEGATIVE); URINE UROBILINOGEN NORMAL mg/dL (0.2-1.0)
[2018-12-19 15:53] LABS: ANISOCYTOSIS SLIGHT; BANDS 3 % (0-2); HYPOCHROMIC SLIGHT; LYMPHOCYTE 6 % (20-40); MONOCYTE 6 % (0-10); NEUTROPHIL 85 % (50-75); PLATELET ESTIMATE NORMAL (NORMAL); TOTAL CELLS COUNTED 100
[2018-12-19 15:54] LABS: MICROCYTOSIS SLIGHT
[2018-12-19 15:58] LABS: BARBITURATES, UR NEGATIVE (NEGATIVE); BENZODIAZEPINES, UR NEGATIVE (NEGATIVE); OPIATES, UR NEGATIVE (NEGATIVE); PHENCYCLIDINE, UR NEGATIVE (NEGATIVE)
[2018-12-19 15:58] LABS: ALB/GLOB RATIO 1.5 (1.0-2.1); ALBUMIN 4.7 g/dL (3.5-5.0); ALT/SGPT 38 U/L (9-52); AST/SGOT 28 U/L (14-36); BLOOD UREA NITROGEN 9 mg/dL (7-17); GFR NON-AFRICAN AMERICAN > 60
[2018-12-19] MEDS ORDERED: Potassium Chloride 20 mEq ER Tab PO STA (16:08)
[2018-12-19] MEDS ORDERED: Sodium Chloride 0.9% 500 ML IV SCH (16:15)
[2018-12-19] MEDS ORDERED: Potassium Chloride 20 mEq/15 ml LIQ UD ONE (16:23)
[2018-12-19] MEDS ORDERED: Sodium Chloride 0.9% 500 ML IV ONE (16:23)
[2018-12-19 16:28] VITALS: O2SAT 95
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
[2018-12-19 17:00] VITALS: BP 123/74; PULSE 91; RESP 18; TEMP 99.2
--- NOTE | 2018-12-19 18:50 | RAD ---
Chest x-ray two views HISTORY: Chest pain. Comparison: 01/16/2018 Findings: Patchy increased consolidative changes in the bilateral hilar regions and left infrahilar region. Enlarged ectatic aorta. Bilateral hilar prominence. Cardiomegaly. Degenerative changes in the spine and shoulders. Postsurgical changes of the right proximal humerus. Surgical clips in the upper abdomen. Impression: Patchy increased consolidative changes in the bilateral hilar regions and left infrahilar region. Enlarged ectatic aorta. Bilateral hilar prominence. Cardiomegaly. Degenerative changes in the spine and shoulders. Postsurgical changes of the right proximal humerus. Surgical clips in the upper abdomen.
--- NOTE | 2018-12-22 22:38 | CARD ---
APPROVED REPORT Date of service: 12/19/2018 EKG Measurement Heart [id number] <Conclusion> Sinus tachycardia Left anterior fascicular block Check lead plavement Abnormal ECG
== END 2018-12-19 17:33 | disposition home or self-care (01) ==
LOC: C.ER 13:55
DX: J09.X2 Influenza due to identified novel influenza A virus with other respiratory manifestations (principal); J45.909 Unspecified asthma, uncomplicated; I10 Essential (primary) hypertension; I48.91 Unspecified atrial fibrillation; E11.9 Type 2 diabetes mellitus without complications
CPT/HCPCS: 71046; 80053; 80324; 80345; 80346; 80349; 80353; 80358; 80361; 81001; 82948; 83992; 84484; 85025; 85610; 85730; 87804; 96360; 99285; J7040

== ENCOUNTER 2018-12-28 07:17 | Outpatient (CLI) | payer OTHER | END 2018-12-28 07:18 | disposition home or self-care (01) | LOC: C.LAB 07:17 | DX: E11.9 Type 2 diabetes mellitus without complications (principal); D64.9 Anemia, unspecified; E03.9 Hypothyroidism, unspecified; E78.5 Hyperlipidemia, unspecified; E55.9 Vitamin D deficiency, unspecified ==

== ENCOUNTER 2019-03-04 08:09 | Outpatient (CLI) | payer OTHER | END 2019-03-04 08:10 | disposition home or self-care (01) | LOC: C.MAMMO 08:09 | DX: Z12.31 Encounter for screening mammogram for malignant neoplasm of breast (principal) ==